=== PATIENT | female | born 1945 | race Caucasian/White ===

== ENCOUNTER 2021-12-22 22:20 | Emergency (ER) | payer MEDICARE, BC ==
[2021-12-23] MEDS ORDERED: HYDROcodone/Acetaminophen 5/325 mg Tablet ONE (02:07)
== END 2021-12-23 02:02 | disposition home or self-care (01) ==
LOC: CSHERS 22:20
DX: S40.022A Contusion of left upper arm, initial encounter (principal); E11.9 Type 2 diabetes mellitus without complications; I10 Essential (primary) hypertension; Z79.84 Long term (current) use of oral hypoglycemic drugs; Z79.899 Other long term (current) drug therapy; W18.31XA Fall on same level due to stepping on an object, initial encounter; Y92.009 Unspecified place in unspecified non-institutional (private) residence as the place of occurrence of the external cause